=== PATIENT | male | born 1985 | race Caucasian/White ===

== ENCOUNTER 2020-07-24 12:36 | Day surgery (SDC) | payer BC ==
[~2020-07-24] VITALS: Ht 175.3 cm; Wt 118.4 kg
[~2020-07-24 12:36] MED LIST: AMOCLA875 PO; AMOX500 PO; CITA20 PO; Cymbalta60 MG PO; HYDACE5; HYDACE5 PO; IBUP800 PO; LITH300C PO; METO10 PO; NAPR500; PRED20 PO; PROM25 PO; RABE20; RXHYDACE PO; TRAM50 PO; VICODIN 5-3001 EACH
--- NOTE | 2020-07-24 13:12 | NUR ---
07/24/20 1312 Lucia Thakur CHARTING DONE BY JOSE JOHNSON RN PREOP
--- NOTE | 2020-07-24 15:00 | NUR ---
07/24/20 1500 Kendall Garcia 1MG OF EPI ADDED TO FIRST BAG OF LR USED FOR JOINT IRRIGATION.
== END 2020-07-24 17:01 | disposition home or self-care (01) ==
LOC: ORSCSDS 12:36
PROVIDERS: Podiatrist Foot & Ankle Surgery
PROC: 0SBF4ZZ Excision of Right Ankle Joint, Percutaneous Endoscopic Approach (ICD-10-PCS; principal; 2020-07-24 14:00)
DX: M25.371 Other instability, right ankle (principal); M65.9 Synovitis and tenosynovitis, unspecified; S86.311A Strain of muscle(s) and tendon(s) of peroneal muscle group at lower leg level, right leg, initial encounter; I10 Essential (primary) hypertension; Z87.891 Personal history of nicotine dependence; K21.9 Gastro-esophageal reflux disease without esophagitis; E66.01 Morbid (severe) obesity due to excess calories; Z68.38 Body mass index [BMI] 38.0-38.9, adult
CPT/HCPCS: A9270; C1713; J0171; J0330; J0690; J1100; J1885; J2270; J2405; J2704; J3010; J7120

== ENCOUNTER 2022-01-30 02:05 | Day surgery (SDC) | payer BC ==
[2022-01-30] MEDS ORDERED: LAMOTRIGINE100 M1 PO (09:19)
[2022-01-30] MEDS ORDERED: SYNTHROID175 MC1 PO (09:20)
[2022-01-30] MEDS ORDERED: CALCITRIOL0.25 MC4 PO (09:20)
== END 2022-01-30 09:23 | disposition home or self-care (01) ==
LOC: ATC 02:05
DX: C73 Malignant neoplasm of thyroid gland (principal); E89.2 Postprocedural hypoparathyroidism; E89.0 Postprocedural hypothyroidism
CPT/HCPCS: 96372; J3240

== ENCOUNTER 2022-01-31 03:38 | Day surgery (SDC) | payer BC ==
[~2022-01-31 03:38] MED LIST changes: +CALCITRIOL0.25 MC4 PO; +LAMOTRIGINE100 M1 PO; +SYNTHROID175 MC1 PO
== END 2022-01-31 09:08 | disposition home or self-care (01) ==
LOC: ATC 03:38
DX: C73 Malignant neoplasm of thyroid gland (principal); E89.2 Postprocedural hypoparathyroidism; E89.0 Postprocedural hypothyroidism
CPT/HCPCS: 96372; J3240